=== PATIENT | male | born 1950 | race Hispanic/Latino ===

== ENCOUNTER → 2019-03-21 | Day surgery (SDC) | payer MEDICARE, OTHER ==
[~2019-03-21] MED LIST: ALFUZOSIN HCL10 MG PO; ATORVASTATIN CA20 MG PO; CYMBALTA30 MG PO; FENTANYL CITRATE/PF 100MCG/2 ML INJ ONE; LISINOPRIL10 MG PO; MIDAZOLAM HCL 2 MG/2 ML VIAL ONE; PROPOFOL IV EMULSION 10 MG/ML 50 ML VIAL ONE; RANITIDINE HCL150 MG PO; ZEBETA10 MG PO
--- OUTSIDE RECORDS SUMMARY | 2019-03-21 05:38 | XMS REPORT | Clinical Summary ---
Author Author [facility] Organization [facility] Address Unknown Phone Unavailable Care Team Providers Care Fire Supervisor Name Role Phone Paulo Desai MD PCP Allergies No Known Allergies Medications End Date Status Medication Sig Dispensed Refills Start Date Active amLODIPine (NORVASC) 10 Take 10 mg by 0 mg tabletIndications: mouth daily. Essential hypertension, benign Active hydrALAZINE (APRESOLINE) Take 50 mg by 0 50 mg tabletIndications: mouth 3 times Essential hypertension, daily. benign Active atorvastatin (LIPITOR) 40 Take 40 mg by 0 mg tabletIndications: mouth at Essential hypertension, bedtime benign nightly. Active lisinopril (PRINIVIL, Take 20 mg by 0 ZESTRIL) 20 mg mouth daily. tabletIndications: Essential hypertension, benign Active finasteride (PROSCAR) 5 Take 5 mg by 0 mg tabletIndications: mouth daily. Benign prostatic hyperplasia with urinary hesitancy Active latanoprost (XALATAN) 1 Drop at 0 0.005 % ophthalmic bedtime solutionIndications: nightly. Hypertensive retinopathy of right eye Active tamsulosin (FLOMAX) 0.4 Take 1 30 capsule 2 mg extended release capsule by 9 capsuleIndications: mouth daily. Benign prostatic hyperplasia with urinary hesitancy Active raNITIdine HCl 150 mg Take 1 60 capsule 2 capsuleIndications: capsule by 9 Gastroesophageal reflux mouth 2 times disease, esophagitis daily. presence not specified Active Problems Problem Noted Date Bilateral primary osteoarthritis of knee 08/23/2018 Vitamin D insufficiency 08/23/2018 Benign prostatic hyperplasia with urinary hesitancy 08/16/2018 Essential hypertension, benign 08/16/2018 Colon cancer screening 08/16/2018 Obesity (BMI 30-39.9) 08/16/2018 Resolved Problems Problem Noted Date Resolved Date Elevated PSA 08/16/2018 08/23/2018 Ocular hypertension of right eye 08/16/2018 08/23/2018 Encounters Care Team Description Date Type Specialty Paulo Desai MD Bilateral primary osteoarthritis of knee (Primary Dx) 08/30/2018 Office Visit Family Practice Paulo Desai MD Bilateral primary osteoarthritis of knee (Primary Dx); Benign prostatic hyperplasia with urinary hesitancy; Gastroesophageal reflux disease, esophagitis presence not specified 08/23/2018 Office Visit Family Practice Paulo Desai MD Essential hypertension, benign (Primary Dx); Benign prostatic hyperplasia with urinary hesitancy; Elevated PSA; Colon cancer screening; Obesity (BMI 30-39.9); Vitamin D insufficiency; Hypertensive retinopathy of right eye 08/16/2018 Office Visit Family Practice after 03/20/2018 Social History Date Tobacco Use Types Packs/Day Years Used Never Smoker Smokeless Tobacco: Never Used Drinks/Week oz/Week Comments Alcohol Use Never Alcohol Habits Answer Date Recorded How often do you have a drink containing alcohol? Never 08/16/2018 How many drinks containing alcohol do you have on Not asked a typical day when you are drinking? How often do you have six or more drinks on one Not asked occasion? Sex Assigned at Date Recorded Not on file Industry Job Start Date Occupation Not on file Not on file Not on file Travel End Travel History Travel Start No recent travel history available. Last Filed Vital Signs Reading Time Taken Comments Vital Sign 144/71 08/30/2018 2:34 PM [employer] Blood Pressure 96 08/30/2018 2:34 PM [employer] Pulse 36.7 C (98 F) 08/30/2018 2:34 PM [employer] Temperature 20 08/30/2018 2:34 PM [employer] Respiratory Rate - - Oxygen Saturation - - Inhaled Oxygen Concentration 85 kg (187 lb 6.4 oz) 08/30/2018 2:34 PM [employer] Weight 167.6 cm (5' 6") 08/30/2018 2:34 PM [employer] Height 30.25 08/30/2018 2:34 PM [employer] Body Mass Index Plan of Treatment Health Maintenance Due Date Last Done Comments Colorectal Cancer Scrn 2002 Annual (FIT/FOBT) Age 50 to 75 IMM Pneumococcal Age 65 2017 and Up IMM Influenza Seasonal 05/07/2019 Oct to October (>/=19 yrs) Procedures Comments Procedure Name Priority Date/Time Associated Diagnosis MRI BRAIN W AND W/O Routine 08/28/2018 Hypertensive retinopathy CONTRAST of right eye CARDIOVASCULAR RISK Routine 08/16/2018 ASSESSMENT 3:32 PM [employer] PROSTATE SPECIFIC Routine 08/16/2018 Benign prostatic AG,SERUM 3:32 PM [employer] hyperplasia with urinary hesitancy Elevated PSA MICROALBUMIN/CREATININE Routine 08/16/2018 Essential hypertension, RATIO, RANDOM URINE 3:32 PM [employer] benign LIPID PANEL Routine 08/16/2018 Essential hypertension, 3:32 PM [employer] benign HEMOGLOBIN A1C Routine 08/16/2018 Essential hypertension, 3:32 PM [employer] benign Obesity (BMI 30-39.9) COMPREHENSIVE METABOLIC Routine 08/16/2018 Essential hypertension, PANEL(14) 3:32 PM [employer] benign after 03/20/2018 Results * MRI BRAIN W AND W/O CONTRAST (08/28/2018) Specimen Performing Organization Address [facility] Phone Number [facility] * COMPREHENSIVE METABOLIC PANEL(14) (08/16/2018 3:32 PM [employer]) Glucose, Serum 101 (H) 65 - 99 mg/dL [facility] 01 BUN 20 8 - 27 mg/dL [facility] 01 Creatinine, 0.86 0.76 - 1.27 mg/dL [facility] 01 Serum eGFR If 91 >59 mL/min/1.73 [facility] 01 NonAfricn Am eGFR If Africn 105 >59 mL/min/1.73 [facility] 01 Am BUN/Creatinine 23 10 - 24 [facility] 01 Ratio Sodium, Serum 135 134 - 144 mmol/L [facility] 01 Potassium, 4.2 3.5 - 5.2 mmol/L [facility] 01 Serum Chloride, Serum 100 96 - 106 mmol/L [facility] 01 Carbon Dioxide, 21 20 - 29 mmol/L [facility] 01 Total Calcium, Serum 9.4 8.6 - 10.2 mg/dL [facility] 01 Protein, Total, 7.2 6.0 - 8.5 g/dL [facility] 01 Serum Albumin, Serum 4.7 3.6 - 4.8 g/dL [facility] 01 Globulin, Total 2.5 1.5 - 4.5 g/dL [facility] 01 A/G Ratio 1.9 1.2 - 2.2 [facility] 01 Bilirubin, 0.6 0.0 - 1.2 mg/dL [facility] 01 Total Alkaline 99 39 - 117 IU/L [facility] 01 Phosphatase, S AST (SGOT) 28 0 - 40 IU/L [facility] 01 ALT (SGPT) 28 0 - 44 IU/L [facility] 01 Specimen Narrative Performed At Performed at: - [facility] [address] [place], [place] [id number] Fittings Finisher: Mayco Wells MD, Phone:[phone] Performing Organization Address [facility] [place] Phone Number [employer] [facility] [address] [place], [place] [phone] [facility] 01 * PROSTATE SPECIFIC AG,SERUM (08/16/2018 3:32 PM [facility] [employer]) Prostate 3.8 0.0 - 4.0 ng/mL [facility] 01 Specific Ag, Comment: Serum Afia ECLIA methodology. According to the [employer], Serum PSA should decrease and remain at undetectable levels after radical prostatectomy. The AUA defines biochemical recurrence as an initial PSA value 0.2 ng/mL or greater followed by a subsequent confirmatory PSA value 0.2 ng/mL or greater. Values obtained with different assay methods or kits cannot be used interchangeably. Results cannot be interpreted as absolute evidence of the presence or absence of malignant disease. Specimen Narrative Performed At Performed at: [facility] [address] [place], [place] [id number] Fittings Finisher: aMyco Wells MD, Phone:[phone] Performing Organization Address [facility] [place] Phone Number [employer] [facility] [address] [place] [address] [facility] 01 * CARDIOVASCULAR RISK ASSESSMENT (08/16/2018 3:32 PM [employer]) Interpretation NoteComment: Supplemental [facility] 02 report is available. Specimen Narrative Performed At Performed at:[facility] [employer] [facility] [address] [id number] Fittings Finisher: Cas Lux MD, Phone:[phone] Performing Organization Address [facility] [place] Phone Number [facility] [address] [place] [address] [facility] 02 * HEMOGLOBIN A1C (08/16/2018 3:32 PM [employer]) Hemoglobin A1c 5.6 4.8 - 5.6 % [facility] 01 Comment: Prediabetes: 5.7 - 6.4 Diabetes: >6.4 Glycemic control for adults with diabetes: <7.0 Specimen Blood Narrative Performed At Performed at: [facility] [place], [id number] Fittings Finisher: Mayco Wells MD, Phone:[phone] Performing Organization Address [facility] [place] Phone Number [facility] [address] [place] [address] [facility] 01 * MICROALBUMIN/CREATININE RATIO, RANDOM URINE (08/16/2018 3:32 PM [employer]) Pathologist [facility] Creatinine, 147.2 Not Estab. mg/dL [facility] 01 Urine Microalbumin, 8.3 Not Estab. ug/mL [facility] 01 Urine Microalb/Creat 5.6 0.0 - 30.0 mg/g [facility] 01 Ratio Comment: creat Normal: 0.0 -30.0 Albuminuria: 31.0 - 300.0 Clinical albuminuria: >300.0 Specimen Urine Narrative Performed At Performed at: [facility] [place], [id number] Fittings Finisher: Mayco Wells MD, Phone:[phone] Performing Organization Address [facility] Phone Number [facility] [address] [place] [address] [facility] 01 * LIPID PANEL (08/16/2018 3:32 PM [employer]) Cholestrol, 124 100 - 199 mg/dL [facility] 01 Total Triglyceride 224 (H) 0 - 149 mg/dL [facility] 01 HDL 35 (L) >39 mg/dL [facility] 01 VLDL Cholestrol 45 (H) 5 - 40 mg/dL [facility] 01 Calc LDL Cholestrol 44 0 - 99 mg/dL [facility] 01 Calc Specimen Narrative Performed At Performed at:01 - [facility] [address] [place], [id number] Fittings Finisher: Mayco Wells MD, Phone:[phone] Performing Organization Address City/State/Zipcode Phone Number [facility] [address] [facility], [place] [address] [facility] 01 after 03/20/2018
--- OUTSIDE RECORDS SUMMARY | 2019-03-21 05:38 | XMS REPORT ---
Author Author [facility] Address Unknown Phone Unavailable Care Team Providers Care Relief Charge Nurse Name Role Phone Unavailable Unavailable Problems This patient has no known problems. Allergies, Adverse Reactions, Alerts This patient has no known allergies or adverse reactions. Medications This patient has no known medications. Encounters Start Date/Time End Date/Time Encounter Type Admission Type Attending Rust Care Department Encounter ID 2018-08-30 14:28:31 2018-08-30 14:28:31 Outpatient [facility] [id number] 2018-08-23 14:40:52 2018-08-23 14:40:52 Outpatient [facility] [id number] 2018-08-16 14:57:28 2018-08-16 14:57:28 Outpatient [facility] [id number]
[2019-03-21 07:34] LABS: BASOPHILS # (AUTO) 0.1 (0.0-0.1); BASOPHILS % 0.7 % (0.0-1.0); EOSINOPHILS # (AUTO) 0.1 (0.0-0.4); EOSINOPHILS % 1.3 % (0.0-6.0); HEMATOCRIT 45.2 % (38.2-49.6); LYMPHOCYTES # (AUTO) 1.7 (1.0-3.2); LYMPHOCYTES % 22.7 % (18.0-39.1); MEAN CORPUSCULAR HEMOGLOBIN 30.8 pg (28-32); MEAN CORPUSCULAR HGB CONC 35.4 g/dL (31-35); MEAN CORPUSCULAR VOLUME 87.1 fL (81-99); MONOCYTES # (AUTO) 0.8 (0.2-0.8); MONOCYTES % 10.8 % (4.4-11.3); NEUTROPHILS # (AUTO) 4.8 (2.1-6.9); NEUTROPHILS % 63.8 % (38.7-80.0); PLATELET COUNT 235 x10e3/uL (140-360); RED BLOOD COUNT 5.19 x10e6/uL (4.3-5.7)
[2019-03-21 09:10] VITALS: BP 132/86
== END | disposition home or self-care (01) ==
LOC: OR 05:35
PROVIDERS: ATTEND Internal Medicine Gastroenterology
DX: K29.70 Gastritis, unspecified, without bleeding (principal); K21.9 Gastro-esophageal reflux disease without esophagitis; K44.9 Diaphragmatic hernia without obstruction or gangrene; Z71.3 Dietary counseling and surveillance; E66.9 Obesity, unspecified; I10 Essential (primary) hypertension; F32.9 Major depressive disorder, single episode, unspecified; F41.9 Anxiety disorder, unspecified; Z68.30 Body mass index [BMI] 30.0-30.9, adult
CPT/HCPCS: 36415; 43239; 85025; 88305; 88312; 93005; J2250; J2704; J3010

== ENCOUNTER → 2021-11-11 | Day surgery (SDC) | payer MEDICARE, OTHER ==
[2021-11-09 11:37] LABS: BASOPHILS % 0.7 % (0.0-1.0); EOSINOPHILS # (AUTO) 0.1 (0.0-0.4); EOSINOPHILS % 1.1 % (0.0-6.0); HEMATOCRIT 36.1 % (38.2-49.6); HEMOGLOBIN 12.2 g/dL (14.0-18.0); LYMPHOCYTES # (AUTO) 1.5 (1.0-3.2); LYMPHOCYTES % 27.5 % (18.0-39.1); MEAN CORPUSCULAR HEMOGLOBIN 28.8 pg (28-32); MEAN CORPUSCULAR HGB CONC 33.8 g/dL (31-35); MEAN CORPUSCULAR VOLUME 85.1 fL (81-99); MONOCYTES # (AUTO) 0.4 (0.2-0.8); MONOCYTES % 7.3 % (4.4-11.3); NEUTROPHILS # (AUTO) 3.5 (2.1-6.9); NEUTROPHILS % 63.2 % (38.7-80.0); PLATELET COUNT 275 x10e3/uL (140-360); RED BLOOD COUNT 4.24 x10e6/uL (4.3-5.7); RED CELL DISTRIBUTION WIDTH 14.1 % (11.7-14.4)
[~2021-11-11] MED LIST changes: +FINASTERIDE5 MG PO; +LIDOCAINE HCL 2% LOCAL INJ 5 ML SDV VIAL INJ ONE; +LOSARTAN POTAS100 MG PO; +NIFEDIPINE ER30 M1 PO; +PANTOPRAZOLE SO40 MG PO; +PROPOFOL IV EMULSION 10 MG/ML 20 ML VIAL ONE; -PROPOFOL IV EMULSION 10 MG/ML 50 ML VIAL ONE; +ZETIA10 MG PO
[2021-11-11 08:56] VITALS: BP 145/89
== END | disposition home or self-care (01) ==
LOC: OR 05:49
PROVIDERS: ATTEND Internal Medicine Gastroenterology
DX: K29.50 Unspecified chronic gastritis without bleeding (principal); K44.9 Diaphragmatic hernia without obstruction or gangrene; K20.90 Esophagitis, unspecified without bleeding; K21.9 Gastro-esophageal reflux disease without esophagitis; K57.30 Diverticulosis of large intestine without perforation or abscess without bleeding; K64.8 Other hemorrhoids; Z71.3 Dietary counseling and surveillance; R63.4 Abnormal weight loss; R63.0 Anorexia; E66.3 Overweight; I10 Essential (primary) hypertension; Z01.810 Encounter for preprocedural cardiovascular examination; Z01.812 Encounter for preprocedural laboratory examination; Z20.822 Contact with and (suspected) exposure to COVID-19; Z68.27 Body mass index [BMI] 27.0-27.9, adult; Z79.899 Other long term (current) drug therapy
CPT/HCPCS: 36415; 43239; 45378; 85025; 93005; J2001; J2250; J3010; U0002